=== PATIENT | female | born 1975 | race African-American/Black ===

== ENCOUNTER 2024-09-26 22:04 | Emergency (ER) | payer BC ==
[~2024-09-26] VITALS: Ht 167.6 cm; Wt 95.0 kg
[2024-09-26 22:31] VITALS: TEMP 98.2
--- NOTE | 2024-09-26 22:51 | Physician Documentation ---
History of Present Illness ~ Chief Complaint: Blurred Vision Stated Complaint: VISION LOSS Time Seen by MD: 22:51 Source: patient HPI 48-year-old female, overall healthy, who presents with an episode of blurred vision. She tells me that she was sleeping tonight, and was woken up by a friend from deep sleep. She felt like the vision from her left eye was blurry, which lasted for about 10 minutes. It has completely resolved and her vision is now normal. No history of similar. She denies any injury to the eye, denies any headache, eye pain, redness to the eye, or any other associated symptoms. She does wear glasses but has not been wearing contacts recently. No other acute concerns. Review of Systems Eyes: Reports: blurred vision Neurological: Denies: headache Physical Exam Vital Signs: Temperature: 98.2, Source: Oral, Heart Rate: 57, Respiratory Rate: 13, BP: 126/84, Pulse Oximetry: 94, Weight: 95.000 Oxygen Flow Rate: 0 Physical Exam General: This is a pleasant and healthy appearing middle-aged woman sitting calmly in bed HEENT: Atraumatic. She was wearing glasses. Eye exam: Both eyes have normal clear conjunctiva, pupils are 3 mm and reactive with no APD, extraocular movements intact without double vision or restriction, visual reid intact. Heart: Regular rate and rhythm, normal-appearing peripheral perfusion Lungs: normal work of breathing, normal oxygen saturation on room air Neuro: Alert and oriented, cranial nerves 2-12 appear grossly intact, vision is grossly normal, no facial droop, clear speech, normal strength and sensation in all 4 extremities, no focal deficits Psychiatric: Calm and cooperative with exam Visual Acuity : Eye Location: Bilateral Vision Acuity Degree: 20/20 Correction: Corrected Progress Results/Orders Results/Orders Vital Signs 09/26/24 09/26/24 09/26/24 22:10 22:31 23:27 Temp 98.2 98.2 Pulse 63 57 52 Resp 16 13 16 B/P (MAP) 152/84 126/84 (98) 145/87 Pulse Ox 100 94 99 O2 Flow Rate 0 0 Medical Decision Making Additional Comment Differential includes eye trauma, corneal abrasion, TIA, hypertensive emergency, optic neuritis Assessment The patient presents with a brief episode of blurry vision with her left eye. By time of my evaluation she was asymptomatic. Per her history and exam, no dangerous cause identified for this episode. I doubt stroke or TIA. I doubt elevated intracranial pressure. I doubt eye trauma. She otherwise has a completely normal exam. She was reassured, and discharged home with a plan for outpatient follow-up and return precautions if she does develop any more concerning symptoms. Departure Time of Disposition: 23:23 Disposition: 01 HOME / SELF CARE / HOMELESS Impression: Primary Impression: Blurring of visual image Condition: Improved Discharge Instructions: Blurred Vision, Adult Referrals: NO PRIMARY CARE PROVIDER (PCP) Education Educated: Patient Educated regarding: diagnosis, need for follow up Signature Scribe Signature: na Attestation: GABRIELA Becerra MD Sep 26, 2024 22:51
[2024-09-26 23:27] VITALS: BP 145/87; PULSE 52; RESP 16; O2SAT 99
== END 2024-09-26 23:32 | disposition home or self-care (01) ==
LOC: ER 22:06
DX: H53.8 Other visual disturbances (principal)
CPT/HCPCS: 99282